=== PATIENT | male | born 1960 | race Caucasian/White ===

== ENCOUNTER 2021-01-28 05:02 | Observation (INO) ==
--- NOTE | 2021-01-15 11:11 | PAT Medication Instructions ---
Medication Instructions Date of Service January 15, 2021 Home Medications Medication Instructions Recorded gabapentin 300 mg capsule 300 mg PO DAILY PRN #90 cap 11/09/20 meloxicam 7.5 mg tablet 7.5 mg PO DAILY PRN #90 tab 11/09/20 aspirin 81 mg chewable tablet 81 mg PO QAM gabapentin 300 mg capsule 300 mg PO DAILY PRN meloxicam 7.5 mg tablet 7.5 mg PO DAILY PRN ASK your surgeon for instructions meloxicam 7.5 mg tablet 7.5 mg PO DAILY PRN Take morning of surgery With a small sip of water, OTHERWISE NOTHING TO EAT OR DRINK AFTER MIDNIGHT: aspirin 81 mg chewable tablet 81 mg PO QAM (continue as normal unless told otherwise by surgeon) gabapentin 300 mg capsule 300 mg PO DAILY PRN (if needed) Other Notes If you have any questions please call us at [phone] or [phone] or [phone] or [phone]
--- NOTE | 2021-01-18 12:31 | Anesthesiology Consultation ---
Date of Service January 18, 2021 Assessment & Plan (1) Encounter for pre-operative examination: - COVID screening: Per assessment on 01/15: Travel screen negative, no known COVID-19 positive contacts or current COVID-19 related symptoms. Patient vaccin ated. Surgeon arranging preop COVID testing. Awaiting results. - ASA instructions: to continue perioperatively unless told otherwise by surgeon/prescriber Chart Review Chart Review: Acceptable Risk for Surgery and Patient seen in Pre Admission Testing Teaching & Discussion Pre-Anesthesia Teaching/Discussion Notes: Instructed NPO after midnight before surgery,except medications with 15 cc of water. Medication instructions provided according to the PAT guidelines. History Surgery Operation Date: 01/28/21 09:10 Proposed Procedures p Right Total Hip Arthroplasty - Nicola Thomas MD Height/Weight Height: 5 ft 5 in Weight: 72.2 kg Allergies Allergy/AdvReac Type Severity Reaction Status Date / Time Penicillins Allergy Unknown Verified 01/10/21 13:34 Medications Home Medications Medication Instructions Recorded Confirmed Last Taken aspirin 81 mg chewable tablet 81 mg PO QAM 11/09/20 01/15/21 Unknown gabapentin 300 mg capsule 300 mg PO DAILY PRN #90 cap 11/09/20 01/15/21 Unknown meloxicam 7.5 mg tablet 7.5 mg PO DAILY PRN #90 tab 11/09/20 01/15/21 Unknown Osteo Bi-Flex 1 tab PO DAILY 01/18/21 01/18/21 Unknown Past Medical History Medical History Arthritis of right hip History of COVID-19 Dx COVID (05/2020) > symptoms at time of one day of fatigue, "ill" > resolved Lumbar spondylosis Exercise / Class Metabolic Activity II 4-5 Yardwork/Stairs/Walk up hill Past Family History Family History Denies family history of Ovarian cancer Prostate cancer Myocardial infarction Breast cancer Colorectal cancer Past Surgical History Surgical History No history of previous surgery Past Anesthesia History No Hx of Anesthesia Complications and No Family Hx of Anesthesia Complications History of PONV No Hx of PONV and Hx of Motion Sickness Social History Smoking Status: Never smoker Do You Dip or Chew Tobacco: No Hx Alcohol Use: No Hx Substance Use: No substance use type: does not use Review of Systems Patient denies chest pain, shortness of breath, dyspnea on exertion, fever, chills, cough, wheezing, palpitations. Physical Exam Vital Signs VITALS BP 121/81 P 76 TEMP 98.2 SP02 97%RA RESP 16 PHYSICAL Full cervical extension range of motion. Full TMJ range of motion. TMD 3.5 finger breaths Mallampati Score 1 Dentition: missing molar Lungs: clear throughout to auscultation Cardiac: regular rate and rhythm, no murmurs noted Spine: normal Carotid arteries: negative bruit Extremities: no edema Lab Results Anesthesia Preop Results Results Anesthesia Widget: WBC 4.67 K/uL (4.8-10.8) L 01/18/21 Hgb 16.1 g/dL (14.0-18.0) 01/18/21 Hct 45.5 % (42-52) 01/18/21 Plt 192 K/uL (130-400) 01/18/21 Na 137 mmol/L (136-145) 01/18/21 K 5.2 mmol/L (3.5-5.1) H 01/18/21 Cl 106 mmol/L (98-107) 01/18/21 CO2 29 mmol/L (21-32) 01/18/21 BUN 17 mg/dl (7-18) 01/18/21 Creat 0.67 mg/dl (0.6-1.4) 01/18/21 Glucose Level 82 mg/dl (70-99) 01/18/21 PT 10.1 Seconds (9.0-12.0) 01/18/21 PTT 25.3 Seconds (21.0-31.0) 01/18/21 INR 1.0 (0.9-1.1) 01/18/21 Blood Type O Positive 01/18/21 Antibody Screen NEGATIVE 01/18/21 Testing Electrocardiogram Date: 01/18/21 NSR at 64bpm. unconfirmed report. Chest X-Ray Date: 01/18/21 Findings: + NAD
--- NOTE | 2021-01-25 12:58 | History and Physical Report ---
DATE OF ADMISSION: 01/28/2021 CHIEF COMPLAINT: Right hip pain, discomfort and stiffness. HISTORY OF PRESENT ILLNESS: A 60-year-old gentleman who presents now for surgical treatment of his r ight hip. He has got a long history of right hip pain and discomfort that has been going on and grad ually getting worse over the past 7 years. He was initially seen at [facility] and diagnosed with what he h as described as a frozen hip. Over the years, he has just put up with it. He gets groin pain. His hip is very stiff. He has difficulty putting his shoes and socks on. He has developed some intermit tent back pain that he relates to his stiffness. He had been treated with medicines, which provided minimal relief. He sought chiropractic treatment, which has not helped and they have suggested that he get his hip fixed. He would now like to proceed with surgical treatment. He takes Mobic with min imal relief. PAST MEDICAL HISTORY: 1. Elevated cholesterol. 2. Lumbar spondylosis. PAST SURGICAL HISTORY: None. ALLERGIES: PENICILLIN. CURRENT MEDICATIONS: Include, 1. Aspirin. 2. Gabapentin. 3. Meloxicam. SOCIAL HISTORY: A 60-year-old male. He is . He works as a entry level assistant manager. He does not smoke. FAMILY HISTORY: Noncontributory. REVIEW OF SYSTEMS: Negative for diabetes, neurologic problem, vascular problems or bleeding disorder s. No chest pain or shortness of breath. No history of DVT or PE. PHYSICAL EXAMINATION: GENERAL: Shows a pleasant middle-aged healthy 60-year-old male. HEENT: Benign. NECK: Supple, no lymphadenopathy. LUNGS: Clear to auscultation. HEART: Has a regular rate and rhythm. ABDOMEN: Soft, nontender, nondistended. EXTREMITIES: Grossly neurovascularly intact except as follows: Examination of the right hip reveals the patient walks with a slight bit of a limp. This right leg is slightly shorter than the left by about 0.5 cm. He has got a very stiff hip with internal rotation to -10 degrees. Mild pain with thi s. Negative straight leg raise. No knee effusion. He is neurologically intact. X-RAYS: X-rays of the right hip were reviewed. It shows advanced right hip DJD. He has complete lo ss of the superior joint space. He has got osteophytes around the femoral head and acetabulum. X-rays of the lumbar spine reveal a fairly flat back. It lacks the normal lumbar lordosis. He has g ot degenerative changes at L4-L5. IMPRESSION: A 60-year-old gentleman with longstanding hip pain and discomfort and stiffness consiste nt with advanced hip arthritis. He has failed conservative treatment and would like to have his righ t hip replaced. Hopefully, by mobilizing his hips some, we will be able to help his back pain as paige velazquez, but certainly no guarantee. PLAN: We are going to take him to the operating room and do right total hip replacement. The risks and benefits of this procedure were explained to the patient and include, but not limited to DVT, PE, , infection, neurological injury, vascular injury, bleeding problem, pain, limited range of mot ion, stiffness, failure to relieve his symptoms, incomplete relief of symptoms, need for further surg massiel in the future, fracture, leg length inequality, nerve palsy, and need for revision surgery. The patient understands and desires to proceed. Informed consent was obtained. As far as discharge plans, he is planning to be discharged to home using [employer] [facility] alberto valera Job ID: [id number]
[2021-01-28] MEDS ORDERED: TRANEXAMIC ACID 1,000 MG **IV Pre-op IV SCH (06:00)
[2021-01-28] MEDS ORDERED: LR 500ML BOLUS, THEN 15ML/HR IV SCH (06:00)
[2021-01-28] MEDS ORDERED: Scopolamine 1 MG TDSY TD SCH (06:00)
[2021-01-28] MEDS ORDERED: GABAPENTIN 600 MG DOSE PO SCH (06:00)
[2021-01-28] MEDS ORDERED: ACETAMINOPHEN 500 MG TAB PO SCH (06:00)
[2021-01-28] MEDS ORDERED: METOCLOPRAMIDE HCL 10 MG TABLET PO SCH (06:00)
[2021-01-28] MEDS ORDERED: FAMOTIDINE 20 MG TAB PO SCH (06:00)
[2021-01-28] MEDS ORDERED: LR 60ML/HR IV SCH (06:00)
[2021-01-28] MEDS ORDERED: BUPIVACAINE 0.5 % 5 MG/1 ML PF 10ML VIAL ONE (06:22)
[2021-01-28] MEDS ORDERED: fentaNYL citrate 100 MCG/2 ML VIAL ONE (06:31)
[2021-01-28] MEDS ORDERED: MIDAZOLAM HCL 1 MG/ML 2ML VIAL ONE (06:31)
[2021-01-28] MEDS ORDERED: PROPOFOL IV EMULSION 10 MG/ML 20 ML VIAL IV ONE (06:31)
[2021-01-28] MEDS ORDERED: BUPIVACAINE 0.5 % 5 MG/1 ML MPF 30ML VIAL ONE (06:36)
[2021-01-28] MEDS ORDERED: EPINEPHrine INJ 1 MG/ML AMP ONE (06:36)
[2021-01-28] MEDS ORDERED: MoRPHine SULFATE PF 1 MG/ML 10 ML AMP/VIAL ONE (06:52)
[2021-01-28] MEDS ORDERED: ceFAZolin 2,000 MG/15 ML IV PUSH IV ONE (06:54)
--- NOTE | 2021-01-28 06:57 | History & Physical Bridge Note ---
Date of Service January 28, 2021 History & Physical Bridge Note I have examined the patient, reviewed the History & Physical and in the interval since the performance of the History & Physical I have noted the following changes of clinical significance: no changes noted
[2021-01-28] MEDS ORDERED: NALBUPHINE HCL INJ 10 MG/ML AMP IV PRN (07:11)
[2021-01-28] MEDS ORDERED: MoRPHine SULFATE PF 1 MG/ML 10 ML AMP/VIAL INT SPINAL ONE (07:11)
[2021-01-28] MEDS ORDERED: diphenhydrAMINE 50 MG/ML VIAL IV PRN (07:11)
[2021-01-28] MEDS ORDERED: NALOXONE HCL 0.08 MG in SYRINGE 1.8 ML IV PRN (07:11)
[2021-01-28] MEDS ORDERED: ONDANSETRON INJ 2 MG/ML 2 ML VIAL IV PRN ×2 (07:11→10:31)
[2021-01-28] MEDS ORDERED: MEPERIDINE HCL 25 MG/ML CARP/VIAL IV PRN (07:11)
[2021-01-28] MEDS ORDERED: NALOXONE HCL 1 MG in SODIUM CHLORIDE 0.9% 1000ML 1,000 ML IV PRN (07:11)
[2021-01-28] MEDS ORDERED: NALOXONE HCL 0.4 MG/1 ML VIAL/CARP IV PRN ×2 (07:11→10:31)
[2021-01-28] MEDS ORDERED: LACTATED RINGER'S 500 ML IV PRN (07:11)
[2021-01-28] MEDS ORDERED: ePHEDrine sulfate 50 MG/ML AMP IV PRN (07:11)
[2021-01-28] MEDS ORDERED: PHENYLEPHRINE 100MCG/ML 5ML SYR ONE (07:14)
[2021-01-28] MEDS ORDERED: NO NARCOTICS OR SEDATIVES SCH (07:15)
[2021-01-28] MEDS ORDERED: SODIUM CHLORIDE 0.9% 1000ML 1,000 ML IV SCH (07:15)
[2021-01-28] MEDS ORDERED: DC INTRASPINAL MORPHINE SCH (07:15)
[2021-01-28] MEDS ORDERED: ePHEDrine sulfate 50 MG/ML AMP ONE (07:23)
[2021-01-28] MEDS ORDERED: PHENYLEPHRINE HCL 10 MG/ML VIAL ONE (08:17)
--- NOTE | 2021-01-28 08:44 | Operative Report ---
Post Operative Report Pre & Post Diagnosis Operation Date: 01/28/21 07:00 Pre-Op Diagnosis: Right Hip Osteoarthritis Post-Op Diagnosis: Right Hip Osteoarthritis I identified the patient and participated in the time-out.: Yes Procedure Operation Date: 01/28/21 07:00 Actual Procedures p Right Total Hip Arthroplasty, Uncemented(Right) - Nicola Thomas MD Surgeon Nicola Thomas MD Sock Drier ABRAM Dominguez Estimated Blood Loss 200 Findings Consistent with Post-Op Diagnosis Operative findings revealed advanced right hip DJD. He had grade 4 [id number] disease of the femoral head and acetabulum. Fairly large acetabular osteophytes particular anteriorly and inferiorly. Not much in the way of femoral head osteophytes. Moderate-sized joint effusion. Fluids 1000 cc Specimens Right femoral head sent for pathology. Drains None. Anesthesia Type Spinal MAC Complications none Disposition Accompanied Patient To Recovery: Yes Indications The patient is a 60-year-old fairly active gentleman who has had about a 7 to 8- year history of gradual progressive right hip pain discomfort stiffness that is gradually gotten worse over time. Is also had some intermittent back problems. He has been through conservative management which became less successful over time. He elected proceed with a right hip replacement. Description of Procedure Operative implants consist of: 1. Biomet G7 size 52 Bloom acetabular shell. 2. 6.5 cancellous acetabular screws 135 mm length and 1 to 20 mm length. 3. [place] hole composition teacher. 4. Highly cross-linked polyethylene liner with a 52 mm outer diameter and 32 mm inner diameter. 5. Depuy Corail size 11 KLA femoral stem. 6. +1/32 mm ceramic articular ball. The patient was taken to the operating, identified, and placed on the operating table supine position but all contractors were properly padded. IV antibiotics tried by anesthesia team. A spinal anesthetic had been implemented in the holding area. Romero catheter was placed in sterile fashion. The patient then placed in the left lateral decubitus position. An axillary roll was placed. A Stulberg hip positioner was used for positioning. The right hip and leg were then prepped and draped in usual sterile fashion. A posterior lateral approach to the right hip was then performed through a curvilinear incision centered over the greater trochanter. Sharp dissection was carried through subcutaneous tissue down to level the IT band gluteal fascia the IT band gluteal fascia was incised longitudinally in line with the skin incision. The underlying greater bursa was excised. The piriformis and external rotators were tagged and taken off the posterior aspect of the hip joint capsule. Great care was taken throughout the procedure protect the sciatic nerve at all times. Posterior capsulotomy was then performed leaving a large flap for later repair. Hip was internally rotated and dislocated. A femoral neck osteotomy cut was made with Final Cut 12 mm above the lesser trochanter. Femoral head was removed. The femur was retracted anteriorly. Attention drawn the acetabulum. The acetabular labrum was excised. The pulmonary fat was excised. Some large inferior osteophytes were removed. Sequential reaming the acetabular was then performed begin with size 43 and progressing up to 51. I did reamed a little bit with a 52 reamer and then placed a 52 mm Biomet G7 acetabular shell in about 40 degrees lateral opening and 20 degrees of anteversion. It was fixed with two 6.5 cancellous acetabular screws. A trial liner was placed. Attention drawn the femur. The proximal femur was entered with a cookie-cutter followed by canal finder. I then broached begin the size 8 and progressing up to 11. We got excellent fit and 11. I could not quite get this the whole way down to the calcar. The hip was then trialed. With a +5 articular ball the soft tissue tension just seemed a little bit too tight and he seemed just a little bit long on the side. Therefore we elected to downsize to the +1 neck length. With this neck length of the hip was fully stable full extension and external rotation and flexion to 90 degrees internal rotation over 60 degrees. Leg lengths seemed equal. We elected to place these implants. All trial implants were removed. An apex hole composition teacher was placed. Highly cross-linked polyethylene liner was placed. A DePuy size 11 KLA femoral stem was impacted in position. A +1/32 mm ceramic articular ball was placed and the hip was located. Attention drawn toward closing. Nupathe wounds irrigated scope soft pulsatile lavage solution. I did inject locally with 60 cc of half percent Marcaine with epinephrine. The posterior capsule and external rotators were then repaired through drill holes in the posterior trochanter with #2 Tycron suture. The IT band gluteal fascia then closed in 1 PDS suture running fashion for subcutaneous tissue then closed with 2 layers of the deep layer #1 Vicryl suture and subcutaneous tissues with 2 Dexon suture in a buried interrupted fashion the skin was closed skin jairo. Leg was then cleaned dried a sterile dressing was Xeroform, 4 x 4's, sterile ABD pad, foam tape was applied. The patient then transferred to the recovery room in stable condition. Patient tolerated procedure well and there were no complications. Farhan Dominguez, my physician customer support assistant, was present for the entire procedure. His assistance was essential and required for appropriate patient positioning, prepping and draping, surgical exposure, performing the technical details of the operation, placement the implants, closure of the wound, and placement of the sterile bandage. I attest to the content of the Intraoperative Record and any orders documented therein. Any exceptions are noted below.
--- NOTE | 2021-01-28 08:58 | XRay Report ---
XR hip 1V RT w pelvis CLINICAL HISTORY: Postoperative evaluation. COMPARISON: Right hip radiographs January 10, 2021. FINDINGS: Alignment of the total right hip arthroplasty is anatomic. No periprosthetic fracture. The re is no unexpected radiopaque foreign body. Acetabular screws are in place. There are skin jairo. IMPRESSION: Expected findings following total right hip arthroplasty. ACT 112: Negative or not required by law. Electronically signed by: Sean Jean M.D. 01/28/2021 8:57 AM
--- NOTE | 2021-01-28 09:35 | Anesthesiology Progress Note ---
Date of Service January 28, 2021 Anesthesia Post Procedure Vital Signs Vital Signs: Temp Pulse Resp BP Pulse Ox 01/28/21 09:20 67 16 140/86 98 01/28/21 09:10 80 16 134/79 99 01/28/21 09:00 69 10 L 132/81 100 01/28/21 08:50 79 14 143/83 H 100 01/28/21 08:40 97.3 F L 83 13 132/74 100 01/28/21 08:34 97.3 F L 90 14 135/80 95 01/28/21 05:34 99.0 F 64 18 136/86 98 Transfer of Care Handoff Completed per policy Notes Mental Status: alert / awake / arousable and participated in evaluation Patient Amnestic to Procedure: Yes Nausea / Vomiting: adequately controlled Pain: adequately controlled Airway Patency, RR, SpO2: stable & adequate BP & HR: stable & adequate Hydration State: stable & adequate Neuraxial Anesthesia: was administered and sensory block is resolving Anesthetic Complications: no major complications apparent and Pt Satisfied with anesthetic care
[2021-01-28] MEDS ORDERED: TAMSULOSIN HCL 0.4 MG CAP PO PRN (10:31)
[2021-01-28] MEDS ORDERED: METOCLOPRAMIDE HCL INJ 5 MG/ML 2 ML VIAL IV PRN (10:31)
[2021-01-28] MEDS ORDERED: GABAPENTIN 300 MG CAP PO PRN (10:31)
[2021-01-28] MEDS ORDERED: OSTEO BI FLEX PO SCH (10:31)
[2021-01-28] MEDS ORDERED: ALUMINUM/MAGNESIUM SUSP 30 ML UDC PO PRN (10:31)
[2021-01-28] MEDS ORDERED: MAGNESIUM HYDROXIDE SUSP 30 ML UDC PO PRN (10:31)
[2021-01-28] MEDS ORDERED: bisacodyL 10 MG SUPP PR PRN (10:31)
[2021-01-28] MEDS ORDERED: HYDROmorphone INJ 0.5 MG/0.5 ML SYR IV PRN (10:31)
[2021-01-28] MEDS: SODIUM CHLORIDE 0.9% 1000ML 1,000 ML IV SCH ×2 (12:11→20:31)
[2021-01-28] MEDS: ASPIRIN 81 MG ECTAB PO SCH ×2 (12:11→20:26)
[2021-01-28] MEDS: MULTIVITAMIN TAB PO SCH (12:12)
[2021-01-28] MEDS: DOCUSATE SODIUM 100 MG CAP PO SCH ×2 (12:12→20:26)
[2021-01-28] MEDS: KETOROLAC 30 MG/ML VIAL IV SCH ×3 (12:12→23:50)
[2021-01-28] MEDS: ACETAMINOPHEN 500 MG TAB PO SCH ×2 (13:38→20:27)
[2021-01-28] MEDS: ceFAZolin 1000MG 1,000 MG/7.5 ML SYR IV SCH ×2 (13:38→20:31)
[2021-01-28] MEDS ORDERED: TRANEXAMIC ACID / 0.7% NACL 1,000 MG/100 ML BAG IV SCH (16:00)
[2021-01-28] MEDS: ASCORBIC ACID 500 MG TAB PO SCH (16:52)
[2021-01-28] MEDS: Scopolamine CHECK PATCH PLACEMENT SCH ×2 (16:52→23:50)
[2021-01-28] MEDS ORDERED: SENNA 8.6 MG TAB PO SCH (21:00)
[2021-01-29] MEDS ORDERED: traMADol HCL 50 MG TABLET PO PRN (01:11)
[2021-01-29] MEDS ORDERED: diphenhydrAMINE Capsule 25 MG CAP PO PRN (01:11)
[2021-01-29] MEDS: KETOROLAC 30 MG/ML VIAL IV SCH ×2 (05:21→11:40)
[2021-01-29] MEDS: ACETAMINOPHEN 500 MG TAB PO SCH ×2 (05:22→12:59)
[2021-01-29 06:32] LABS: Basophils # (auto) 0.01 K/uL (0-0.2); Basophils % (auto) 0.1 %; Eosinophils # (auto) 0.03 K/uL (0-0.5); Eosinophils % (auto) 0.4 %; Hematocrit (blood only) 37.9 % (42-52); Hemoglobin 13.1 g/dL (14.0-18.0); Immature Granulocytes # (auto) 0.03 K/uL (0.00-0.02); Immature Granulocytes % (auto) 0.4 %; Lymphocytes # (auto) 0.77 K/uL (1.2-3.4); Lymphocytes % (auto) 10.8 %; Mean Corpuscular Hemoglobin 30.9 pg (25-34); Mean Corpuscular Hgb Conc 34.6 g/dL (32-36); Mean Corpuscular Volume 89.4 fL (80-100); Mean Platelet Volume 8.4 fL (7.4-10.4); Monocytes # (auto) 0.71 K/uL (0.11-0.59); Neutrophils # (auto) 5.58 K/uL (1.4-6.5); Neutrophils % (auto) 78.3 %; Platelet Count 156 K/uL (130-400); RDW Coefficient of Variation 13.5 % (11.5-14.5); RDW Standard Deviation 43.5 fL (36.4-46.3); Red Blood Count 4.24 M/uL (4.7-6.1); White Blood Count 7.13 K/uL (4.8-10.8)
[2021-01-29 07:01] LABS: BUN Creatinine Ratio 15.7 (10-20); Calcium 8.2 mg/dl (8.5-10.1); Creatinine Clr Calc Pharmacy 110.6 ml/min; Est GFR (African American) 124.9 ml/min; Est GFR (Non-African American) 107.8 ml/min; Potassium 3.5 mmol/L (3.5-5.1)
[2021-01-29] MEDS ORDERED: dexAMETHasone 10 MG in SYRINGE 0 ML IV SCH (08:00)
[2021-01-29] MEDS: Scopolamine CHECK PATCH PLACEMENT SCH (09:23)
[2021-01-29] MEDS: DOCUSATE SODIUM 100 MG CAP PO SCH (09:23)
[2021-01-29] MEDS: ASPIRIN 81 MG ECTAB PO SCH (09:23)
[2021-01-29] MEDS: ASCORBIC ACID 500 MG TAB PO SCH (09:23)
[2021-01-29] MEDS: MULTIVITAMIN TAB PO SCH (09:23)
--- NOTE | 2021-01-29 18:56 | Progress Notes ---
DATE OF NOTE: 01/29/2021. SUBJECTIVE: A 60-year-old gentleman postoperative day 1 from a right hip replacement. He is doing p retty well. Pain is controlled. He had a pretty decent night. No chest pain or shortness of breath . Not feeling dizzy or lightheaded. OBJECTIVE: VITAL SIGNS: Temperature 36.7. Vital signs are stable. GENERAL: Shows a pleasant middle-aged male. He was walking in and out of the bathroom when I visite d him this morning. LUNGS: Clear to auscultation. HEART: Has a regular rate and rhythm. ABDOMEN: Soft, nontender, nondistended. EXTREMITIES: Grossly neurovascularly intact except as follows. Examination of the right hip and leg reveals the dressing to be clean, dry and intact. Thigh is soft and supple. Leg lengths are equal. He can dorsiflex and plantarflex his foot appropriately. He is neurologically intact. LABORATORY DATA: Hemoglobin 13.1. Hematocrit 37.9. Electrolytes are stable. ASSESSMENT: A 60-year-old gentleman postoperative day 1 from right hip replacement, doing pretty wel l. Pain is controlled. Hip is located. He is neurologically intact. PLAN: 1. DVT prophylaxis include thigh-high TEDs, SCDs, and aspirin twice a day. 2. PT, OT, weightbear as tolerated. Right total hip protocol. 3. Pain control, doing okay with current pain regimen. 4. Disposition: Plan to discharge to home with home health if he does okay in therapy today. Job ID: [id number]
--- NOTE | 2021-02-01 13:19 | Discharge Summary ---
Date of Service February 01, 2021 Discharge Data Procedures Performed Operation Date: 01/28/21 07:00 Actual Procedures p Right Total Hip Arthroplasty, Uncemented(Right) - Nicola Thomas MD Hospital Course (1) Status post total hip replacement, right: This is a 60 year old patient admitted on 01/28/21 and underwent total hip arthroplasty. He tolerated the procedure well and there were no complications. Transferred to the PACU post op and later to the orthopedic floor for further care. He was given ancef for antibiotic prophylaxis. He was also given CHERELLE stockings, SCDs, and aspirin for DVT prophylaxis. Hemoglobin, hematocrit, and vital signs were monitored during his hospital stay and remained stable. Did not require any blood transfusions. There were no complications during his hospital stay. By post op day #1 the patient was tolerating a regular diet, pain was reasonably controlled with oral pain medicine, and he was participating in physical therapy. On post op day #1 the patient was discharged home and set up with home health care. He was given printed discharge instructions including prescriptions for extra strength tylenol, aspirin, and tramadol. Continue physical therapy, weight bearing as tolerated. Continue hip precautions. Continue CHERELLE stockings. Follow up approximately 2 weeks post op or sooner if there are problems or concerns. Coding Level of Care Code None Diagnoses Status post total hip replacement, right Z96.641
== END 2021-01-29 15:38 | disposition home health service (06) ==
LOC: 3E 05:02 → ASU 05:02